=== PATIENT | male | born 1970 | race African-American/Black ===

== ENCOUNTER → 2022-01-06 | Day surgery (SDC) | payer OTHER ==
[~2022-01-06] VITALS: Ht 175.3 cm; Wt 65.4 kg
[~2022-01-06] MED LIST: FOLIC ACID1 MG PO; FOSAMAX70 MG PO; GABAPENTIN600 MG PO; MAGNESIUM OXID400 MG PO; MELOXICAM15 MG PO; POTASSIUM CHLO10 MEQ PO; VITAMIN B-121000 MC2 PO; VITAMIN D350 MC3 PO
== END | disposition home or self-care (01) ==
LOC: FAS 10:39
DX: K64.8 Other hemorrhoids (principal); K21.9 Gastro-esophageal reflux disease without esophagitis; I10 Essential (primary) hypertension; F17.210 Nicotine dependence, cigarettes, uncomplicated; Z98.0 Intestinal bypass and anastomosis status; Z90.49 Acquired absence of other specified parts of digestive tract; Z87.19 Personal history of other diseases of the digestive system
CPT/HCPCS: J2704; J7120